=== PATIENT | male | born 1995 | race African-American/Black ===

== ENCOUNTER 2018-01-06 13:55 | Emergency (ER) | payer SELFPAY ==
[~2018-01-06] VITALS: Ht 182.9 cm; Wt 77.0 kg
[2018-01-06 14:01] VITALS: BP 0/0
[2018-01-06] MEDS ORDERED: SODIUM CHLORIDE 0.9% 1,000 ML IV ONE (14:45)
== END 2018-01-06 16:22 | disposition left against medical advice (07) ==
LOC: ER 13:55
DX: F22 Delusional disorders (principal)
CPT/HCPCS: 71045; 99284; J7030

== ENCOUNTER 2022-09-18 13:26 | Emergency (ER) | payer OTHER ==
[~2022-09-18] VITALS: Ht 182.9 cm; Wt 70.0 kg
[2022-09-18 13:33] VITALS: BP 127/83; PULSE 98; RESP 19; TEMP 98; O2SAT 98
[2022-09-18] MEDS ORDERED: BACITRACIN ZINC OINT UDPKT TOP ONE (14:00)
[2022-09-18] MEDS ORDERED: LIDOCAINE HCL/PF 1% 10 MG/ML 5ML VIAL INFIL ONE (14:00)
[2022-09-18] MEDS ORDERED: TETANUS, DIPHTHERIA, PERTUSSIS VAC/PF 0.5ML (>10YR OLD) IM ONE (14:00)
[2022-09-18] MEDS ORDERED: BO1 TP (15:13)
== END 2022-09-18 15:58 | disposition home or self-care (01) ==
LOC: ER 13:40
DX: S61.412A Laceration without foreign body of left hand, initial encounter (principal); K59.00 Constipation, unspecified; J06.9 Acute upper respiratory infection, unspecified; X58.XXXA Exposure to other specified factors, initial encounter; Y93.89 Activity, other specified; Y92.89 Other specified places as the place of occurrence of the external cause; Y99.8 Other external cause status
CPT/HCPCS: 73130; 90715; 12002; 90471; 99283; J3490; Z7610 ×3

== ENCOUNTER 2022-10-07 15:00 | Emergency (ER) | payer MEDICAID, OTHER ==
[~2022-10-07] VITALS: Ht 185.4 cm; Wt 74.0 kg
[~2022-10-07 15:00] MED LIST: BO1 TP
[2022-10-07 15:25] VITALS: O2SAT 99
[2022-10-07] MEDS ORDERED: CEPH500T MT (15:33)
[2022-10-07 16:23] VITALS: BP 132/82; PULSE 86; RESP 19; TEMP 98.3
== END 2022-10-07 16:34 | disposition home or self-care (01) ==
LOC: ER 15:06
DX: S61.412D Laceration without foreign body of left hand, subsequent encounter (principal); X58.XXXD Exposure to other specified factors, subsequent encounter
CPT/HCPCS: 99283; Z7610